=== PATIENT | male | born 1980 | race African-American/Black ===

== ENCOUNTER 2024-08-04 09:04 | Emergency (ER) | payer MEDICAID ==
[~2024-08-04] VITALS: Ht 182.9 cm; Wt 115.0 kg
[2024-08-04 09:09] VITALS: TEMP 97.9; O2SAT 98
[2024-08-04] MEDS ORDERED: DIPHENHYDRAMINE 50MG/ML VIAL IV ONE (10:30)
[2024-08-04] MEDS ORDERED: KETOROLAC 15MG/ML VIAL IV ONE (10:30)
[2024-08-04] MEDS ORDERED: ACETAMINOPHEN 325MG TABLET PO ONE ×2 (10:30→15:15)
[2024-08-04] MEDS ORDERED: METOCLOPRAMIDE HCL 10MG/2ML VIAL IV ONE (10:30)
[2024-08-04 10:41] LABS: BASOPHILS % 0.4 % (0.0-2.0); EOSINOPHILS % 0.3 % (0.0-5.0); HEMATOCRIT. 50.9 % (42.0-52.0); HEMOGLOBIN. 16.7 g/dL (14.0-18.0); LYMPHOCYTES % 12.8 % (20.0-50.0); MEAN CORPUSCULAR HEMOGLOBIN 30.7 pg (28.0-32.0); MEAN CORPUSCULAR HGB CONC 32.9 g/dL (31.0-37.0); MEAN CORPUSCULAR VOLUME 93.3 fL (80.0-94.0); MONOCYTES % 5.9 % (2.0-8.0); NEUTROPHILS % 80.6 % (40.0-76.0); PLATELET 346 x1000/uL (130-400); RED BLOOD CELL COUNT 5.45 mill/uL (4.7-6.1); RED CELL DISTRIBUTION WIDTH 13.4 % (11.6-14.6); WHITE BLOOD COUNT 12.9 x1000/uL (4.5-11.0)
[2024-08-04 10:50] LABS: CHLORIDE 107 mEq/L (98-107); POTASSIUM 4.1 mEq/L (3.5-5.1); SODIUM 140 mEq/L (136-145)
[2024-08-04 10:51] LABS: CARBON DIOXIDE 27 mEq/L (21-32)
[2024-08-04 10:52] LABS: CALCIUM 9.7 mg/dL (8.7-10.4)
[2024-08-04 10:56] LABS: CREATININE 0.9 mg/dL (0.6-1.3); GLUCOSE 109 mg/dL (70-105)
[2024-08-04 10:57] LABS: TROPONIN I HIGH SENSITIVITY 4 ng/L (3.0-53); UREA NITROGEN BLOOD 13 mg/dL (9-23)
[2024-08-04 10:58] LABS: ALANINE AMINOTRANSFERASE 34 IU/L (10-49); ALBUMIN 4.8 g/dL (3.2-4.8); ASPARTATE AMINOTRANSFERASE 23 IU/L (<34)
[2024-08-04 10:59] LABS: BILIRUBIN TOTAL 0.9 mg/dL (0.1-1.0); PROTEIN TOTAL 7.5 g/dL (6.0-8.3)
[2024-08-04] MEDS: SODIUM CHLORIDE 0.9% 1,000 ML IV ONE (15:14)
[2024-08-04] MEDS: ACETAMINOPHEN 325MG TABLET PO NR (15:16)
[2024-08-04] MEDS: METOCLOPRAMIDE HCL 10MG/2ML VIAL IV NR (15:18)
[2024-08-04] MEDS: LIDOCAINE 5% PATCH TOP SCH (15:18)
[2024-08-04 15:27] LABS: TROPONIN I HIGH SENSITIVITY < 4 ng/L (3.0-53)
[2024-08-04] MEDS: DIPHENHYDRAMINE 50MG/ML VIAL IV NR (16:05)
[2024-08-04] MEDS: KETOROLAC 15MG/ML VIAL IV NR (16:05)
[2024-08-04] MEDS ORDERED: ONDA-239 PO (16:12)
[2024-08-04 17:55] VITALS: BP 133/88; PULSE 71; RESP 16; O2SAT 98
== END 2024-08-04 17:57 | disposition home or self-care (01) ==
LOC: ER 09:04
DX: G43.909 Migraine, unspecified, not intractable, without status migrainosus (principal)
CPT/HCPCS: 80053; 83735; 85025; 84484; 36415; 71045; 70450; 93005; 96361; 96374; 96375; 99285; J1200; J1885; J2765; J7030; Z7610 ×2